=== PATIENT | female | born 1970 | race Two or more races ===

== ENCOUNTER → 2021-07-19 | Outpatient (CLI) | payer SELFPAY ==
--- NOTE | 2021-07-19 16:00 | EMB_PTH ---
PATIENT: BRISA FRANKS LOC: [facility] U#:[id number] AGE/SX: 50/F ROOM: RE07/19/[address]: Dr. Luis M Martini MD : [id number] BED: DIS: 07/19/2021 SPEC #: [id number] RECD: 07/19/21 17:31 STATUS: LOURDES ALEKSANDAR #: [id number] ALEX: 07/19/21 16:[address]: Luis M Martini DEPT: SURGICAL PATHOLOGY RECD BY: Blessing Schaefer Tissues: Endometrium, NOS Procedures: Surgery Specimen Level IV HEADER OPERATION: Endometrial biopsy PRE-OP DIAGNOSIS: Abnormal uterine bleeding TISSUE SUBMITTED: Endometrial biopsy MICROSCOPIC DIAGNOSIS Endometrium, biopsy: Proliferative endometrium with focal glandular breakdown. AM:[place] 07/21/2021 MICROSCOPIC DESCRIPTION Slides are reviewed. GROSS DESCRIPTION Received in fixative is one container labeled with the patient's name and designated EM biopsy. The specimen consists of multiple fragments of hemorrhagic soft tissue that in aggregate measure 2.5 x 1 x 0.1 cm. The specimen is totally submitted in one cassette. / SJ:rg 07/20/21 TC:5 CPT: 39614
[2021-07-26 14:47] LABS: HPV Reflexed? NOT INDICATED
== END | disposition home or self-care (01) ==
LOC: LABSPEC 16:51
PROVIDERS: Visit Provider Obstetrics & Gynecology
DX: N93.9 Abnormal uterine and vaginal bleeding, unspecified (principal); Z12.4 Encounter for screening for malignant neoplasm of cervix
CPT/HCPCS: 88175; 88305; G0145